=== PATIENT | male | born 1955 | race Caucasian/White ===

== ENCOUNTER → 2017-08-12 | Outpatient (CLI) | payer OTHER ==
[~2017-08-12] MED LIST: AUGMENTIN 875875 MG PO; IBUPROFEN 800800 MG PO; NORCO 5-325 TA1 EACH PO; ZYRTEC10 M5 PO
== END ==
LOC: M.RAD 11:48
DX: K21.9 Gastro-esophageal reflux disease without esophagitis (principal); R06.02 Shortness of breath; R06.6 Hiccough